=== PATIENT | male | born 1940 | race Caucasian/White ===

== ENCOUNTER 2020-02-07 20:05 | Emergency (ER) | payer MEDICARE ==
[2020-02-07] MEDS ORDERED: TRAMADOL 50 MG TAB PO (20:57)
[2020-02-07] MEDS ORDERED: PANTOPRAZOLE SO40 MG PO (20:57)
[2020-02-07] MEDS ORDERED: AMITRIPTYLINE H25 M2 PO (20:57)
[2020-02-07] MEDS ORDERED: LOSARTAN POTASS50 M1 PO (20:58)
[2020-02-07 21:00] LABS: EOS % 0.5 % (0.0-4.0); HEMATOCRIT 28.9 % (42.0-52.0); HEMOGLOBIN 9.2 g/dL (13.5-18.0); LYMPH# 0.8 (1.50-4.00); MEAN CELL VOLUME 101 fl (78-100); MEAN CORPUSCULAR HEMOGLOBIN 32 pg (27-31); MEAN CORPUSCULAR HGB CONC 32 g/dL (33-37); MEAN PLATELET VOLUME 9.3 fl (7.4-10.4); MONO # 0.7 (0.20-0.80); NEU # 6.1 (1.40-6.50); PLATELET COUNT 182 K/mm3 (130-400); RED BLOOD COUNT 2.87 M/mm3 (4.20-5.60); RED CELL DISTRIBUTION WIDTH 14.6 % (11.5-14.5); WHITE BLOOD COUNT 7.7 K/mm3 (4.8-10.8)
[2020-02-07 21:10] LABS: ALBUMIN 2.8 g/dL (3.4-4.8)
[2020-02-07 21:11] LABS: POTASSIUM 4.1 mmol/L (3.5-5.1)
[2020-02-07 21:12] LABS: CALCIUM 8.2 mg/dL (8.3-10.5)
[2020-02-07 21:13] LABS: TOTAL PROTEIN 7.4 g/dL (6.2-8.1)
[2020-02-07 21:15] LABS: TOTAL BILIRUBIN 0.8 mg/dL (0.2-1.2)
[2020-02-07 21:21] LABS: URINE APPEARANCE HAZY; URINE BILIRUBIN NEGATIVE (NEGATIVE); URINE BLOOD NEGATIVE (NEGATIVE); URINE COLOR AMBER; URINE GLUCOSE NEGATIVE (NEGATIVE); URINE KETONE NEGATIVE (NEGATIVE); URINE LEUKOCYTE ESTERASE NEGATIVE (NEGATIVE); URINE NITRATE NEGATIVE (NEGATIVE); URINE PROTEIN(semi-quant) NEGATIVE (NEGATIVE); URINE UROBILINOGEN NORMAL (NORMAL)
[2020-02-07 21:29] LABS: URINE WBC 0-1 /hpf (0-3)
[2020-02-07 21:30] LABS: URINE MUCUS PRESENT (NOT PRESENT)
[2020-02-07 23:13] VITALS: BP 132/81
== END 2020-02-07 23:10 | disposition home or self-care (01) ==
LOC: ED 20:05
PROVIDERS: Nurse Practitioner Family
DX: S50.311A Abrasion of right elbow, initial encounter (principal); D64.9 Anemia, unspecified; E86.0 Dehydration; I25.10 Atherosclerotic heart disease of native coronary artery without angina pectoris; Z95.5 Presence of coronary angioplasty implant and graft; Z95.4 Presence of other heart-valve replacement; W18.31XA Fall on same level due to stepping on an object, initial encounter; Y92.009 Unspecified place in unspecified non-institutional (private) residence as the place of occurrence of the external cause
CPT/HCPCS: 90714; J7030